=== PATIENT | female | born 1965 | race Caucasian/White ===

== ENCOUNTER 2023-08-02 14:46 | Emergency (ER) | payer MEDICAID ==
[~2023-08-02] VITALS: Ht 160 cm; Wt 71.1 kg
[~2023-08-02 14:46] MED LIST: OME20GT PO
[2023-08-02 15:59] VITALS: BP 170/76; PULSE 87; RESP 16; TEMP 98.1; O2SAT 97
[2023-08-02] MEDS: cefTRIAXone SOD 1,000 MG VL IM ONE (16:14)
[2023-08-02] MEDS ORDERED: IBUP-1454 PO (16:16)
[2023-08-02] MEDS ORDERED: CLIN1CAP70 PO (16:16)
== END 2023-08-02 16:26 | disposition home or self-care (01) ==
LOC: ER 14:46
DX: K04.7 Periapical abscess without sinus (principal); F41.9 Anxiety disorder, unspecified; F32.A Depression, unspecified; K21.9 Gastro-esophageal reflux disease without esophagitis; E07.9 Disorder of thyroid, unspecified; Z90.710 Acquired absence of both cervix and uterus; Z90.89 Acquired absence of other organs
CPT/HCPCS: 96372; 99283; J0696